=== PATIENT | male | born 1985 | race American Indian/Alaskan Native ===

== ENCOUNTER 2017-04-17 09:48 | Emergency (ER) | payer BC ==
[2017-04-17 10:02] VITALS: BP 117/85
[2017-04-17] MEDS ORDERED: NACL 0.9% 1000 ML 1,000 ML IV ONE (10:02)
[2017-04-17 10:54] LABS: Basophils % (Auto) 0.6 % (0.0-1.8); Eosinophils % (Auto) 0.6 % (0.0-4.3); Hematocrit 47.9 % (35.5-45.6); Hemoglobin 16.4 gm/dl (11.8-15.2); Mean Corpuscular HGB Conc 34 % (32-34); Mean Corpuscular Hemoglobin 30 pg (28-32); Mean Corpuscular Volume 87 fl (84-94); Platelet Count 305 K/mm3 (140-440); Red Blood Count 5.51 M/mm3 (3.65-5.03)
[2017-04-17 11:02] LABS: INR 1.11 (0.87-1.13)
[2017-04-17 11:03] LABS: Partial Thromboplastin Time 32.2 Sec. (24.2-36.6)
[2017-04-17 11:13] LABS: Alanine Aminotransferase 22 units/L (7-56); Albumin 4.4 g/dL (3.9-5); Albumin/Globulin Ratio 1.2 %; Alkaline Phosphatase 92 units/L (35-129); Anion Gap 16 mmol/L; BUN/Creatinine Ratio 9; Blood Urea Nitrogen 7 mg/dL (9-20); Calcium 9.3 mg/dL (8.4-10.2); Carbon Dioxide 28 mmol/L (22-30); Glucose 80 mg/dL (75-100); Lipase 29 units/L (13-60); Potassium 4.2 mmol/L (3.6-5.0); Sodium 139 mmol/L (137-145)
== END 2017-04-17 19:45 | disposition left against medical advice (07) ==
LOC: ED 09:48
DX: K92.1 Melena (principal); Z53.21 Procedure and treatment not carried out due to patient leaving prior to being seen by health care provider
CPT/HCPCS: 36415; 80053; 83690; 85025; 85610; 85730; 86850; 86900; 86901; 93005; 93010